=== PATIENT | male | born 1960 | race Caucasian/White ===

== ENCOUNTER 2022-01-03 12:24 | Inpatient (IN) | payer OTHER ==
[2022-01-03] MEDS ORDERED: MAGNESIUM HYDROX 2400MG/30ML ORAL SUSPENSION 30 ML CUP PO PRN (12:56)
[2022-01-03] MEDS ORDERED: NICOTINE 10 MG CARTRIDGE (INHALER) IH PRN (12:56)
[2022-01-03] MEDS ORDERED: MAG HYDROX/AL HYDROX/SIMETH 30 ML UNIT-DOSE CUP PO PRN (12:56)
[2022-01-03] MEDS ORDERED: BISMUTH SUBSALICYLATE 262 MG/15 ML BTL PO PRN (12:56)
[2022-01-03] MEDS ORDERED: ACETAMINOPHEN 325 MG TABLET (FP) PO PRN ×2 (12:56)
[2022-01-03] MEDS ORDERED: cloNIDine HCL 0.1 MG TABLET PO PRN (12:56)
[2022-01-03] MEDS ORDERED: LOPERAMIDE HCL 2 MG CAPSULE PO PRN (12:56)
[2022-01-03] MEDS ORDERED: NALOXONE HCL (KLOXXADO) 8 MG SPRAY NS PRN (12:56)
[2022-01-03] MEDS ORDERED: MAGNESIUM CITRATE 300 ML BOTTLE PO PRN (12:56)
[2022-01-03] MEDS ORDERED: BENZOCAINE/MENTHOL (CHLORASEPTIC ) LOZENGE MM PRN (12:56)
[2022-01-03] MEDS ORDERED: DICYCLOMINE HCL 10 MG CAPSULE PO PRN (12:56)
[2022-01-03 13:33] VITALS: BMI 27.3
[2022-01-03] MEDS: NICOTINE 21 MG/24 HOURS TOPICAL PATCH TD SCH (14:53)
[2022-01-03] MEDS ORDERED: methaDONE HCL 10 MG TABLET (FOR DETOX USE ONLY) PO ONE (20:00)
[2022-01-03] MEDS: THIAMINE HCL 100 MG TABLET (FP) PO SCH (22:33)
[2022-01-03] MEDS: METHOCARBAMOL 500 MG TABLET PO PRN (22:35)
[2022-01-03] MEDS: MELATONIN 5 MG TABLETS PO SCH (22:35)
[2022-01-04 08:43] LABS: HEMATOCRIT 37.5 % (35.4-49); HEMOGLOBIN 12.5 GM/dL (11.7-16.9); MCH 28.4 pg (25.7-33.7); MCHC 33.5 g/dl (32.0-35.9); MEAN CELL VOLUME 84.8 fl (80-96); MEAN PLT VOLUME 7.4 fl (7.5-11.1); PLATELET COUNT 316 10^3/uL (134-434); RBC 4.42 M/mm3 (4.00-5.60); RDW 13.9 % (11.9-15.9); WHITE BLOOD COUNT 5.2 K/mm3 (4.0-10.0)
[2022-01-04 09:00] LABS: BLOOD UREA NITROGEN 16.4 mg/dL (7-18); CALCIUM 8.4 mg/dL (8.5-10.1)
[2022-01-04 09:03] LABS: CREATININE 0.6 mg/dL (0.55-1.3)
[2022-01-04 09:05] LABS: BILIRUBIN,TOTAL 0.7 mg/dL (0.2-1); TOT PROT 6.8 g/dl (6.4-8.2)
[2022-01-04] MEDS ORDERED: methaDONE HCL 10 MG TABLET (FOR DETOX USE ONLY) ONE (09:26)
[2022-01-04] MEDS: PRENATAL VITAMINS W/ FOLIC ACID TABLET (FP) PO SCH (10:29)
[2022-01-04] MEDS: NICOTINE 21 MG/24 HOURS TOPICAL PATCH TD SCH (10:29)
[2022-01-04] MEDS: METHOCARBAMOL 500 MG TABLET PO PRN ×2 (10:33→22:19)
[2022-01-04] MEDS: IBUPROFEN 400 MG TABLET (FP) PO PRN ×2 (10:33→22:19)
[2022-01-04] MEDS: MELATONIN 5 MG TABLETS PO SCH (22:19)
[2022-01-04] MEDS: THIAMINE HCL 100 MG TABLET (FP) PO SCH (22:19)
[2022-01-05 09:02] VITALS: BP 144/79; PULSE 56; TEMP 98.2
[2022-01-05] MEDS: NICOTINE 21 MG/24 HOURS TOPICAL PATCH TD SCH (10:00)
[2022-01-05] MEDS ORDERED: methaDONE HCL 10 MG TABLET (FOR DETOX USE ONLY) PO ONE (10:00)
[2022-01-05] MEDS: PRENATAL VITAMINS W/ FOLIC ACID TABLET (FP) PO SCH (10:00)
[2022-01-07] MEDS ORDERED: methaDONE HCL 10 MG TABLET (FOR DETOX USE ONLY) PO ONE (10:00)
== END 2022-01-05 10:30 | disposition left against medical advice (07) | DRG 894 ==
LOC: YASAS 12:24 → Y3N 13:38
PROVIDERS: ADMIT Allergy & Immunology; ATTEND Surgery
PROC: HZ2ZZZZ Detoxification Services for Substance Abuse Treatment (ICD-10-PCS; principal; 2022-01-03)
DX: F11.23 Opioid dependence with withdrawal (principal); F14.20 Cocaine dependence, uncomplicated; F17.290 Nicotine dependence, other tobacco product, uncomplicated; F60.3 Borderline personality disorder
CPT/HCPCS: 36415; 80053; 85027; 86780; 87811; 93005; 93010; C9803-CS; U0003; U0005

== ENCOUNTER 2022-07-24 10:40 | Inpatient (IN) | payer OTHER ==
[2022-07-24 11:31] VITALS: BMI 26.9
[2022-07-24] MEDS ORDERED: NALOXONE HCL (KLOXXADO) 8 MG SPRAY NS PRN (11:36)
[2022-07-24] MEDS ORDERED: ONDANSETRON *ODT* 4 MG TABLET SL PRN (11:36)
[2022-07-24] MEDS ORDERED: ACETAMINOPHEN 325 MG TABLET (FP) PO PRN ×2 (11:36)
[2022-07-24] MEDS ORDERED: MAG HYDROX/AL HYDROX/SIMETH 30 ML UNIT-DOSE CUP PO PRN (11:36)
[2022-07-24] MEDS ORDERED: IBUPROFEN 600 MG TABLET (FP) PO PRN (11:36)
[2022-07-24] MEDS ORDERED: MAGNESIUM HYDROX 2400MG/30ML ORAL SUSPENSION 30 ML CUP PO PRN (11:36)
[2022-07-24] MEDS ORDERED: POLYETHYLENE GLYCOL (HEALTHYLAX) 3350 17 GM PACKET PO PRN (11:36)
[2022-07-24] MEDS ORDERED: DICYCLOMINE HCL 10 MG CAPSULE PO PRN (11:36)
[2022-07-24] MEDS ORDERED: methaDONE HCL 10 MG TABLET (FOR DETOX USE ONLY) PO ONE (11:36)
[2022-07-24] MEDS ORDERED: NICOTINE 10 MG CARTRIDGE (INHALER) IH PRN (11:36)
[2022-07-24] MEDS ORDERED: LOPERAMIDE HCL 2 MG CAPSULE PO PRN (11:36)
[2022-07-24] MEDS ORDERED: BISMUTH SUBSALICYLATE 262 MG/15 ML BTL PO PRN (11:36)
[2022-07-24] MEDS ORDERED: BENZOCAINE/MENTHOL (CHLORASEPTIC ) LOZENGE MM PRN (11:36)
[2022-07-24] MEDS ORDERED: cloNIDine HCL 0.1 MG TABLET PO PRN (11:36)
[2022-07-24] MEDS ORDERED: methaDONE HCL 10 MG TABLET (FOR DETOX USE ONLY) ONE (13:04)
[2022-07-24] MEDS: PRENATAL VITAMINS W/ FOLIC ACID TABLET (FP) PO SCH (13:11)
[2022-07-24] MEDS ORDERED: CLINDAMYCIN HCL 300 MG CAPSULE PO SCH (14:00)
[2022-07-24] MEDS: CLINDAMYCIN HCL 150 MG CAPSULE (FP) PO SCH ×2 (14:54→22:43)
[2022-07-24 15:42] LABS: HEMATOCRIT 37.2 % (35.4-49); MCHC 32.2 g/dl (32.0-35.9); MEAN CELL VOLUME 80.8 fl (80-96); MEAN PLT VOLUME 6.8 fl (7.5-11.1); PLATELET COUNT 434 10^3/uL (134-434); RDW 14.9 % (11.9-15.9); WHITE BLOOD COUNT 6.1 K/mm3 (4.0-10.0)
[2022-07-24 15:49] LABS: ALBUMIN 3.2 g/dl (3.4-5.0); CALCIUM 8.7 mg/dL (8.5-10.1)
[2022-07-24 15:50] LABS: BLOOD UREA NITROGEN 9.1 mg/dL (7-18)
[2022-07-24 15:54] LABS: BILIRUBIN,TOTAL 0.3 mg/dL (0.2-1); TOT PROT 7.7 g/dl (6.4-8.2)
[2022-07-24 16:00] LABS: CREATININE 0.7 mg/dL (0.55-1.3)
[2022-07-24] MEDS: clonazePAM 0.5 MG ODT TABLETS SL PRN (17:46)
[2022-07-24] MEDS: MELATONIN 5 MG TABLETS PO SCH (22:43)
[2022-07-24] MEDS: METHOCARBAMOL 500 MG TABLET PO PRN (22:44)
[2022-07-24] MEDS: THIAMINE HCL 100 MG TABLET (FP) PO SCH (22:44)
[2022-07-25] MEDS: CLINDAMYCIN HCL 150 MG CAPSULE (FP) PO SCH ×3 (05:34→22:33)
[2022-07-25] MEDS: clonazePAM 0.5 MG ODT TABLETS SL PRN ×3 (08:52→22:33)
[2022-07-25] MEDS: METHOCARBAMOL 500 MG TABLET PO PRN ×2 (08:52→22:34)
[2022-07-25] MEDS: IBUPROFEN 400 MG TABLET (FP) PO PRN (08:52)
[2022-07-25] MEDS: PRENATAL VITAMINS W/ FOLIC ACID TABLET (FP) PO SCH (10:02)
[2022-07-25] MEDS: NICOTINE 14 MG/24 HOURS TOPICAL PATCH TD SCH (10:03)
[2022-07-25] MEDS: THIAMINE HCL 100 MG TABLET (FP) PO SCH (22:33)
[2022-07-25] MEDS: MELATONIN 5 MG TABLETS PO SCH (22:33)
[2022-07-26] MEDS: CLINDAMYCIN HCL 150 MG CAPSULE (FP) PO SCH ×3 (05:44→21:08)
[2022-07-26] MEDS: hydrOXYzine PAMOATE 25 MG CAPSULE (FP) PO PRN ×2 (05:45→21:09)
[2022-07-26] MEDS ORDERED: methaDONE HCL 10 MG TABLET (FOR DETOX USE ONLY) PO ONE (10:00)
[2022-07-26] MEDS: IBUPROFEN 400 MG TABLET (FP) PO PRN (10:07)
[2022-07-26] MEDS: NICOTINE 14 MG/24 HOURS TOPICAL PATCH TD SCH (10:08)
[2022-07-26] MEDS: METHOCARBAMOL 500 MG TABLET PO PRN ×2 (10:08→21:09)
[2022-07-26] MEDS: PRENATAL VITAMINS W/ FOLIC ACID TABLET (FP) PO SCH (10:08)
[2022-07-26] MEDS: clonazePAM 0.5 MG ODT TABLETS SL PRN ×2 (13:26→21:09)
[2022-07-26] MEDS: MELATONIN 5 MG TABLETS PO SCH (21:08)
[2022-07-26] MEDS: THIAMINE HCL 100 MG TABLET (FP) PO SCH (21:08)
[2022-07-27] MEDS: CLINDAMYCIN HCL 150 MG CAPSULE (FP) PO SCH ×3 (05:43→22:09)
[2022-07-27 09:11] VITALS: RESP 18
[2022-07-27] MEDS: PRENATAL VITAMINS W/ FOLIC ACID TABLET (FP) PO SCH (09:34)
[2022-07-27] MEDS: METHOCARBAMOL 500 MG TABLET PO PRN ×2 (09:34→22:10)
[2022-07-27] MEDS: clonazePAM 0.5 MG ODT TABLETS SL PRN (09:34)
[2022-07-27] MEDS: NICOTINE 14 MG/24 HOURS TOPICAL PATCH TD SCH (09:36)
[2022-07-27] MEDS: hydrOXYzine PAMOATE 25 MG CAPSULE (FP) PO PRN ×2 (13:48→22:10)
[2022-07-27] MEDS: THIAMINE HCL 100 MG TABLET (FP) PO SCH (22:09)
[2022-07-27] MEDS: MELATONIN 5 MG TABLETS PO SCH (22:09)
[2022-07-28] MEDS: CLINDAMYCIN HCL 150 MG CAPSULE (FP) PO SCH (05:25)
[2022-07-28] MEDS: METHOCARBAMOL 500 MG TABLET PO PRN (05:27)
[2022-07-28 09:30] VITALS: BP 121/64; PULSE 67; TEMP 96.8
[2022-07-28] MEDS ORDERED: methaDONE HCL 10 MG TABLET (FOR DETOX USE ONLY) PO ONE (10:00)
== END 2022-07-28 09:21 | disposition home or self-care (01) | DRG 897 ==
LOC: YASAS 10:40 → Y3N 12:00
PROVIDERS: ADMIT Allergy & Immunology; ATTEND Surgery
PROC: HZ2ZZZZ Detoxification Services for Substance Abuse Treatment (ICD-10-PCS; principal; 2022-07-24)
DX: F11.23 Opioid dependence with withdrawal (principal); F14.20 Cocaine dependence, uncomplicated; L03.113 Cellulitis of right upper limb; F17.210 Nicotine dependence, cigarettes, uncomplicated; F60.3 Borderline personality disorder; M17.0 Bilateral primary osteoarthritis of knee; R01.1 Cardiac murmur, unspecified; R00.0 Tachycardia, unspecified
CPT/HCPCS: 36415; 80053; 85027; 86780; C9803-CS; Q0162; U0003; U0005

== ENCOUNTER 2022-10-15 12:46 | Inpatient (IN) | payer OTHER ==
[2022-10-15] MEDS ORDERED: PIPERACILLIN/TAZOB 4.5 GM 4.5 GM in DEXTROSE 5%-WATER 100 ML IVPB ONE (15:21)
[2022-10-15] MEDS ORDERED: VANCOMYCIN 1 GM in D5W (PRE-DOCKED) 1,000 MG/250 ML IVPB ONE (15:21)
[2022-10-15] MEDS ORDERED: PIPERACILLIN/TAZOB 4.5 GM 4.5 GM/100 ML BAG IVPB ONE (15:43)
[2022-10-15] MEDS ORDERED: VANCOMYCIN/WATER FOR INJ (PEG) 1,000 MG/200 ML BAG IVPB ONE (15:43)
[2022-10-15 16:01] LABS: BASO % 0.3 % (0-2.0); EOS % 1.6 % (0-4.5); HEMATOCRIT 36.1 % (35.4-49); HEMOGLOBIN 11.4 GM/dL (11.7-16.9); LYMPH % 20.4 % (8-40); MCH 24.5 pg (25.7-33.7); MCHC 31.7 g/dl (32.0-35.9); MEAN CELL VOLUME 77.3 fl (80-96); MEAN PLT VOLUME 6.5 fl (7.5-11.1); NEUT % 67.7 % (42.8-82.8); PLATELET COUNT 327 10^3/uL (134-434); RBC 4.67 M/mm3 (4.00-5.60); RDW 16.6 % (11.9-15.9); WHITE BLOOD COUNT 11.7 K/mm3 (4.0-10.0)
[2022-10-15 16:27] LABS: CHLORIDE 102 mmol/L (98-107); SODIUM 135 mmol/L (136-145)
[2022-10-15 16:29] LABS: CALCIUM 8.6 mg/dL (8.5-10.1)
[2022-10-15 16:30] LABS: ALBUMIN 2.9 g/dl (3.4-5.0); ANION GAP 5 MMOL/L (8-16); BLOOD UREA NITROGEN 12.6 mg/dL (7-18); CO2 29 mmol/L (21-32); GLUCOSE,RANDOM 91 mg/dL (74-106)
[2022-10-15 16:33] LABS: CREATININE 0.6 mg/dL (0.55-1.3); SGOT/AST 25 U/L (15-37); SGPT/ALT 26 U/L (13-61)
[2022-10-15 16:36] LABS: ALK PHOS 78 U/L (45-117); BILIRUBIN,TOTAL 0.5 mg/dL (0.2-1); TOT PROT 7.5 g/dl (6.4-8.2)
[2022-10-15] MEDS ORDERED: LORazepam 2 MG/ML SDV VIAL IVPUSH ONE ×2 (17:17→17:18)
[2022-10-15 17:21] LABS: ERYTHROCYTE SEDIMENTATION RATE 44 mm/hr (0-20)
[2022-10-15 21:01] LABS: TOTAL IRON BINDING CAPACITY 241 ug/dL (250-450)
[2022-10-15 21:02] LABS: IRON SERUM 18 ug/dL (50-175)
[2022-10-15 21:34] LABS: ANISOCYTOSIS 2+; MACROCYTOSIS 0; OVALOCYTE 1+
[2022-10-16 00:11] VITALS: BMI 23.7
[2022-10-16] MEDS ORDERED: PIPERACILLIN/TAZOB 3.375 GM 3.375 GM in DEXTROSE 5%-WATER - 50 ML IVPB SCH (02:00)
[2022-10-16] MEDS ORDERED: VANCOMYCIN/WATER 1250 MG 1,250 MG/250 ML BAG IVPB SCH ×2 (02:00→04:00)
[2022-10-16] MEDS: PIPERACILLIN/TAZOB 3.375 GM 3.375 GM in DEXTROSE 5%-WATER - 50 ML IVPB SCH ×3 (02:13→18:13)
[2022-10-16] MEDS: GABAPENTIN 400 MG CAPSULE PO SCH ×3 (05:47→21:09)
[2022-10-16] MEDS ORDERED: VANCOMYCIN 1 GM in D5W (PRE-DOCKED) 1,000 MG/250 ML IVPB SCH (10:00)
[2022-10-16] MEDS ORDERED: methaDONE HCL 10 MG TABLET (FOR DETOX USE ONLY) PO SCH (10:00)
[2022-10-16] MEDS: methaDONE 80 MG, methaDONE 20 MG PO SCH (11:11)
[2022-10-16] MEDS: ENOXAPARIN NA (PORCINE) 40 MG/0.4 ML DISP.SYRIN SQ SCH (11:12)
[2022-10-16 11:45] LABS: BASO % 0.4 % (0-2.0); EOS % 1.5 % (0-4.5); HEMATOCRIT 37.3 % (35.4-49); HEMOGLOBIN 12.3 GM/dL (11.7-16.9); LYMPH % 25.9 % (8-40); MEAN CELL VOLUME 78.8 fl (80-96); MONO % 9.7 % (3.8-10.2); NEUT % 62.5 % (42.8-82.8); PLATELET COUNT 331 10^3/uL (134-434); RBC 4.73 M/mm3 (4.00-5.60); RDW 16.8 % (11.9-15.9); WHITE BLOOD COUNT 8.4 K/mm3 (4.0-10.0)
[2022-10-16 12:19] LABS: ALBUMIN 2.8 g/dl (3.4-5.0); CALCIUM 8.3 mg/dL (8.5-10.1); MAGNESIUM 2.1 mg/dL (1.8-2.4)
[2022-10-16 12:22] LABS: CREATININE 0.7 mg/dL (0.55-1.3)
[2022-10-16 12:23] LABS: BILIRUBIN,TOTAL 0.6 mg/dL (0.2-1); TOT PROT 7.6 g/dl (6.4-8.2)
[2022-10-16 12:55] LABS: HIV INTERPRETATION NEGATIVE (NEGATIVE)
[2022-10-16] MEDS: DOXYCYCLINE HYCLATE 100 MG CAPSULE PO SCH (18:13)
[2022-10-17] MEDS: PIPERACILLIN/TAZOB 3.375 GM 3.375 GM in DEXTROSE 5%-WATER - 50 ML IVPB SCH ×2 (02:13→10:00)
[2022-10-17] MEDS: methaDONE 80 MG, methaDONE 20 MG PO SCH (06:21)
[2022-10-17] MEDS: GABAPENTIN 400 MG CAPSULE PO SCH ×3 (06:22→22:12)
[2022-10-17] MEDS ORDERED: ACETAMINOPHEN 325 MG TABLET (FP) PO PRN (07:24)
[2022-10-17 07:57] LABS: BASO % 0.6 % (0-2.0); EOS % 3.1 % (0-4.5); HEMATOCRIT 36.8 % (35.4-49); HEMOGLOBIN 11.9 GM/dL (11.7-16.9); LYMPH % 32.2 % (8-40); MCH 25.2 pg (25.7-33.7); MCHC 32.4 g/dl (32.0-35.9); MEAN CELL VOLUME 77.9 fl (80-96); MEAN PLT VOLUME 6.8 fl (7.5-11.1); MONO % 12.8 % (3.8-10.2); NEUT % 51.3 % (42.8-82.8); PLATELET COUNT 322 10^3/uL (134-434); RBC 4.72 M/mm3 (4.00-5.60); WHITE BLOOD COUNT 7.9 K/mm3 (4.0-10.0)
[2022-10-17 09:03] LABS: CALCIUM 8.7 mg/dL (8.5-10.1)
[2022-10-17 09:04] LABS: ALBUMIN 2.7 g/dl (3.4-5.0); BLOOD UREA NITROGEN 14.9 mg/dL (7-18); MAGNESIUM 2.2 mg/dL (1.8-2.4)
[2022-10-17 09:07] LABS: CREATININE 0.8 mg/dL (0.55-1.3)
[2022-10-17 09:08] LABS: TOT PROT 7.4 g/dl (6.4-8.2)
[2022-10-17 09:09] LABS: BILIRUBIN,TOTAL 1.2 mg/dL (0.2-1)
[2022-10-17] MEDS: DOXYCYCLINE HYCLATE 100 MG CAPSULE PO SCH ×2 (10:00→17:28)
[2022-10-17] MEDS: ENOXAPARIN NA (PORCINE) 40 MG/0.4 ML DISP.SYRIN SQ SCH (10:00)
[2022-10-17] MEDS: NYSTATIN 100,000 UNIT/GM TOPICAL CREAM 15 GM TUBE TP SCH ×2 (11:30→22:12)
[2022-10-17 12:39] LABS: HIV INTERPRETATION NEGATIVE (NEGATIVE)
[2022-10-17] MEDS: AMOX TR/POT CLAV 875MG/125MG TABLETS (FP) PO SCH (17:28)
[2022-10-18] MEDS: methaDONE 80 MG, methaDONE 20 MG PO SCH (05:45)
[2022-10-18] MEDS: GABAPENTIN 400 MG CAPSULE PO SCH ×3 (05:46→21:22)
[2022-10-18] MEDS: AMOX TR/POT CLAV 875MG/125MG TABLETS (FP) PO SCH ×2 (10:53→17:27)
[2022-10-18] MEDS: ENOXAPARIN NA (PORCINE) 40 MG/0.4 ML DISP.SYRIN SQ SCH (10:53)
[2022-10-18] MEDS: DOXYCYCLINE HYCLATE 100 MG CAPSULE PO SCH ×2 (10:53→17:27)
[2022-10-18] MEDS: NYSTATIN 100,000 UNIT/GM TOPICAL CREAM 15 GM TUBE TP SCH ×2 (10:54→21:22)
[2022-10-18 11:04] LABS: BASO % 0.7 % (0-2.0); EOS % 2.8 % (0-4.5); HEMOGLOBIN 12.3 GM/dL (11.7-16.9); LYMPH % 33.6 % (8-40); MCH 25.7 pg (25.7-33.7); MCHC 32.2 g/dl (32.0-35.9); MEAN CELL VOLUME 79.7 fl (80-96); MEAN PLT VOLUME 7.2 fl (7.5-11.1); MONO % 7.9 % (3.8-10.2); PLATELET COUNT 363 10^3/uL (134-434); RBC 4.77 M/mm3 (4.00-5.60); RDW 16.7 % (11.9-15.9); WHITE BLOOD COUNT 6.6 K/mm3 (4.0-10.0)
[2022-10-18 11:28] LABS: ALBUMIN 2.9 g/dl (3.4-5.0); CALCIUM 8.9 mg/dL (8.5-10.1)
[2022-10-18 11:29] LABS: BLOOD UREA NITROGEN 16.6 mg/dL (7-18)
[2022-10-18 11:32] LABS: CREATININE 0.8 mg/dL (0.55-1.3)
[2022-10-18 11:33] LABS: BILIRUBIN,TOTAL 0.5 mg/dL (0.2-1)
[2022-10-18 11:34] LABS: TOT PROT 7.9 g/dl (6.4-8.2)
[2022-10-19] MEDS: methaDONE 80 MG, methaDONE 20 MG PO SCH (06:28)
[2022-10-19] MEDS: GABAPENTIN 400 MG CAPSULE PO SCH ×3 (06:29→21:35)
[2022-10-19 10:34] LABS: BASO % 0.6 % (0-2.0); EOS % 3.4 % (0-4.5); HEMATOCRIT 37.7 % (35.4-49); HEMOGLOBIN 12.2 GM/dL (11.7-16.9); LYMPH % 31.8 % (8-40); MCH 25.9 pg (25.7-33.7); MCHC 32.5 g/dl (32.0-35.9); MEAN CELL VOLUME 79.9 fl (80-96); MONO % 9.7 % (3.8-10.2); NEUT % 54.5 % (42.8-82.8); PLATELET COUNT 350 10^3/uL (134-434); RBC 4.72 M/mm3 (4.00-5.60); RDW 16.8 % (11.9-15.9); WHITE BLOOD COUNT 5.8 K/mm3 (4.0-10.0)
[2022-10-19 10:49] LABS: CALCIUM 8.6 mg/dL (8.5-10.1)
[2022-10-19 10:50] LABS: ALBUMIN 2.8 g/dl (3.4-5.0); BLOOD UREA NITROGEN 18.7 mg/dL (7-18); MAGNESIUM 1.8 mg/dL (1.8-2.4)
[2022-10-19 10:53] LABS: CREATININE 0.8 mg/dL (0.55-1.3)
[2022-10-19 10:54] LABS: BILIRUBIN,TOTAL 0.2 mg/dL (0.2-1); TOT PROT 7.8 g/dl (6.4-8.2)
[2022-10-19] MEDS: DOXYCYCLINE HYCLATE 100 MG CAPSULE PO SCH ×2 (11:11→17:42)
[2022-10-19] MEDS: ENOXAPARIN NA (PORCINE) 40 MG/0.4 ML DISP.SYRIN SQ SCH (11:11)
[2022-10-19] MEDS: AMOX TR/POT CLAV 875MG/125MG TABLETS (FP) PO SCH ×2 (11:11→17:42)
[2022-10-19] MEDS: NYSTATIN 100,000 UNIT/GM TOPICAL CREAM 15 GM TUBE TP SCH ×2 (11:17→21:35)
[2022-10-19 13:57] VITALS: RESP 18
[2022-10-19 23:28] VITALS: BP 100/52; PULSE 52; TEMP 99
[2022-10-20] MEDS: GABAPENTIN 400 MG CAPSULE PO SCH (05:08)
[2022-10-20] MEDS: methaDONE 80 MG, methaDONE 20 MG PO SCH (05:08)
[2022-10-20] MEDS: AMOX TR/POT CLAV 875MG/125MG TABLETS (FP) PO SCH (09:42)
[2022-10-20] MEDS: DOXYCYCLINE HYCLATE 100 MG CAPSULE PO SCH (09:42)
[2022-10-20] MEDS: NYSTATIN 100,000 UNIT/GM TOPICAL CREAM 15 GM TUBE TP SCH (09:44)
[2022-10-20] MEDS: ENOXAPARIN NA (PORCINE) 40 MG/0.4 ML DISP.SYRIN SQ SCH (09:44)
== END 2022-10-20 15:03 | disposition other institution (70) | DRG 603 ==
LOC: JER 12:46 → JERBED 18:36 → J5S 21:32
PROVIDERS: ADMIT Internal Medicine; ATTEND Internal Medicine
PROC: 0Y9J3ZZ Drainage of Left Lower Leg, Percutaneous Approach (ICD-10-PCS; principal; 2022-10-15)
DX: L03.116 Cellulitis of left lower limb (principal); F11.20 Opioid dependence, uncomplicated; F14.20 Cocaine dependence, uncomplicated; L03.311 Cellulitis of abdominal wall; L03.114 Cellulitis of left upper limb; L02.416 Cutaneous abscess of left lower limb; F31.9 Bipolar disorder, unspecified; F10.10 Alcohol abuse, uncomplicated; D50.9 Iron deficiency anemia, unspecified; F17.210 Nicotine dependence, cigarettes, uncomplicated
CPT/HCPCS: 36415; 71046-TC-FY; 73110-TC-LT-FY; 73130-TC-LT-FY; 73200-TC-RT; 73590-TC-LT-FY; 73700-TC-RT; 80053; 82728; 83540; 83550; 83735; 84484; 85025; 85651; 86780; 86803; 87040; 87070; 87081; 87205; 87389; 87522; 93005; 93010; 97116-GP; 97161-GP; 99285-25; C9803-CS; U0003; U0005